=== PATIENT | female | born 1965 | race Native Hawaiian/Other Pacific Islander ===

== ENCOUNTER 2018-06-09 08:32 | Outpatient (CLI) | payer BC ==
[2018-06-09 08:51] LABS: PLATELET COUNT 197 K/uL (152-353)
== END 2018-06-09 21:11 | disposition home or self-care (01) ==
LOC: LABW 08:32
PROVIDERS: Obstetrics & Gynecology
DX: R53.83 Other fatigue (principal)
CPT/HCPCS: 36415; 80061; 82607; 84443; 85027

== ENCOUNTER 2019-08-27 11:54 | Outpatient (CLI) | payer OTHER | END 2019-08-27 20:12 | disposition home or self-care (01) | LOC: RAD 11:54 | DX: M25.562 Pain in left knee (principal) ==

== ENCOUNTER 2020-08-15 11:14 | Outpatient (CLI) | payer OTHER | END 2020-08-15 19:02 | disposition home or self-care (01) | LOC: RAD 11:14 | PROVIDERS: ATTEND Nurse Practitioner | DX: M54.16 Radiculopathy, lumbar region (principal) ==

== ENCOUNTER 2021-12-11 17:55 | Outpatient (CLI) | payer OTHER | END 2021-12-11 20:03 | disposition home or self-care (01) | LOC: RAD 17:55 | PROVIDERS: ATTEND Nurse Practitioner Family | DX: M25.562 Pain in left knee (principal) ==

== ENCOUNTER 2022-11-05 15:36 | Outpatient (CLI) | payer OTHER | END 2022-11-05 20:21 | disposition home or self-care (01) | LOC: MAMMO 15:36 | PROVIDERS: ATTEND Registered Nurse | DX: Z12.31 Encounter for screening mammogram for malignant neoplasm of breast (principal) ==